=== PATIENT | female | born 1980 | race Caucasian/White ===

== ENCOUNTER 2017-11-21 16:56 | Emergency (ER) | payer MEDICARE, OTHER ==
[~2017-11-21] VITALS: Ht 170.2 cm; Wt 112.5 kg
[~2017-11-21 16:56] MED LIST: CELEXA10 MG PO; CELEXA20 MG; EPIPEN 2-P0.3 MG/0.3 IM; IBUPROFEN400 MG PO; LEVOTHYROXINE88 MCG PO; LISINOPRIL-HCT1 EAC2 PO; LISINOPRIL10 MG; METHOCARBAMOL750 MG PO; NORCO 5-325 TA1 EACH PO; OMEPRAZOLE20 MG PO; OXYCODON-ACETA1 EAC2 PO; OXYCODONE-ACET1 EAC3 PO; PROMETHAZINE-COD5 ML PO; TYLENOL EXTRA500 MG PO; TYLENOL325 MG PO; VALIUM5 MG PO; ZOFRAN ODT4 MG PO; ZOFRAN ODT4 MG SL
[2017-11-21] MEDS ORDERED: ANUSOL-HC25 MG PR (18:52)
[2017-11-21] MEDS ORDERED: ENULOSE10 GM/15 M PO (18:52)
== END 2017-11-21 19:00 | disposition home or self-care (01) ==
LOC: ED 16:56
DX: K64.8 Other hemorrhoids (principal); K59.00 Constipation, unspecified; I10 Essential (primary) hypertension; Z88.2 Allergy status to sulfonamides; Z88.5 Allergy status to narcotic agent; Z79.899 Other long term (current) drug therapy
CPT/HCPCS: 74177; 80053; 85025; 85610; 99284; J7030; Q9967

== ENCOUNTER 2018-01-24 13:56 | Emergency (ER) | payer MEDICARE, OTHER ==
[~2018-01-24] VITALS: Ht 170.2 cm; Wt 112.5 kg
[~2018-01-24 13:56] MED LIST changes: +ANUSOL-HC25 MG PR; +ENULOSE10 GM/15 M PO
[2018-01-24] MEDS ORDERED: METHYLPREDNISOLO4 M1 PO (16:07)
[2018-01-24] MEDS ORDERED: VALIUM5 MG PO (16:07)
[2018-01-24] MEDS ORDERED: NORCO 5-325 TA1 EACH PO (16:07)
== END 2018-01-24 16:23 | disposition home or self-care (01) ==
LOC: ED 13:56
DX: M48.061 Spinal stenosis, lumbar region without neurogenic claudication (principal); M62.830 Muscle spasm of back; I10 Essential (primary) hypertension; E03.9 Hypothyroidism, unspecified; Z88.2 Allergy status to sulfonamides; Z88.5 Allergy status to narcotic agent; Z79.899 Other long term (current) drug therapy
CPT/HCPCS: 72131; 81001; 96374; 96375; 99284; J1100; J1885; J2060

== ENCOUNTER 2018-10-18 20:02 | Emergency (ER) | payer MEDICARE, OTHER ==
[~2018-10-18] VITALS: Ht 170.2 cm; Wt 113.4 kg
[~2018-10-18 20:02] MED LIST changes: +MACROBID 100 M100 MG PO; +METHYLPREDNISOLO4 M1 PO
--- OUTSIDE RECORDS SUMMARY | 2018-10-18 20:04 | XMS ---
PreManage Notification: GUICHO NIETO Security Delinquent Account Clerk Events No recent Security Events currently on file CRITERIA MET - [facility] CARE PROVIDERS SON NEWSOME [facility] Current PHONE: Unknown Holland Newsome Current PHONE: Unknown Bhargav has no Care Guidelines for this patient. Lyndsey VISIT COUNT (12 MO.) 1 Bibiana Ochoa TOTAL 5 NOTE: Visits indicate total known visits. ED/UCC VISIT TRACKING (12 MO.) 10/18/2018 20:02 ELPIDIO Rodas [place] TYPE: Emergency COMPLAINT: - CONGESTION 07/28/2018 00:40 ELPIDIO Rodas [place] TYPE: Emergency COMPLAINT: - BLOOD PRESSURE PROBLEMS DIAGNOSES: - Essential (primary) hypertension - Allergy status to sulfonamides status - Allergy status to narcotic agent status - Acquired absence of both cervix and uterus - Allergy status to other drugs, medicaments and biological substances status - Headache - Other fdc (current) drug therapy - Migraine, unspecified, not intractable, without status migrainosus - Hypothyroidism, unspecified 01/24/2018 13:57 ELPIDIO Rodas [place] TYPE: Emergency COMPLAINT: - BACK PAIN/NO INJURY DIAGNOSES: - Allergy status to sulfonamides status - Muscle spasm of back - Essential (primary) hypertension - Hypothyroidism, unspecified - Low back pain - Allergy status to narcotic agent status - Other marine oil terminal superintendent (current) drug therapy - Spinal stenosis, lumbar region without neurogenic claudication - SPINAL STENOSIS, LUMBAR REGION WITHOUT NEUROGENIC 11/21/2017 16:56 ELPIDIO Rodas [place] TYPE: Emergency COMPLAINT: - LEFT LOWER ABD PAIN, RECTAL BLEEDING DIAGNOSES: - Constipation, unspecified - Allergy status to narcotic agent status - Other hemorrhoids - Left lower quadrant pain - Allergy status to sulfonamides status - Essential (primary) hypertension - Other marine oil terminal superintendent (current) drug therapy 10/29/2017 19:12 Bibiana TUCKER [place] TYPE: Emergency COMPLAINT: - Syncope / Pre-syncope INPATIENT VISIT TRACKING (12 MO.) No inpatient visits to display in this time frame [email or web address]
[2018-10-18] MEDS ORDERED: LISINOPRIL10 MG PO (20:18)
== END 2018-10-18 20:45 | disposition home or self-care (01) ==
LOC: ED 20:02
DX: J06.9 Acute upper respiratory infection, unspecified (principal); I10 Essential (primary) hypertension; Z90.710 Acquired absence of both cervix and uterus; Z88.2 Allergy status to sulfonamides; Z88.5 Allergy status to narcotic agent; Z88.8 Allergy status to other drugs, medicaments and biological substances; Z79.899 Other long term (current) drug therapy
CPT/HCPCS: 99283

== ENCOUNTER 2019-03-31 11:11 | Emergency (ER) | payer MEDICARE, OTHER ==
[~2019-03-31] VITALS: Ht 170.2 cm; Wt 113.4 kg
[~2019-03-31 11:11] MED LIST changes: +LISINOPRIL10 MG PO
--- OUTSIDE RECORDS SUMMARY | 2019-03-31 11:14 | XMS ---
PreManage Notification: GUICHO NIETO Security Manager Outreach Events No recent Security Events currently on file CRITERIA MET - [facility] - Has Care Guidelines - PDMP - [facility] - 2 Visits in 30 Days CARE PROVIDERS SON NEWSOME [facility] Current PHONE: Unknown Holland Newsome DO Treatment Current PHONE: Unknown Bhargav has no Care Guidelines for this patient. Care History Medical/Surgical 03/09/2019 [facility] - PATIENT HAS AN APT WITH DALIA ROCKWELL FOR FOLLOW UP TO ED VISIT ON 03/23/19. E.D. VISIT COUNT (12 MO.) 4 [facility] TOTAL 4 NOTE: Visits indicate total known visits. ED/UCC VISIT TRACKING (12 MO.) 03/31/2019 11:11 ELPIDIO Rodas [place] TYPE: Emergency COMPLAINT: - ABD PAIN,N/V 03/08/2019 00:37 ELPIDIO Rodas [place] TYPE: Emergency COMPLAINT: - VAGINAL BLEEDING DIAGNOSES: - Unspecified abnormal findings in urine - Allergy status to sulfonamides status - Allergy status to narcotic agent status - Essential (primary) hypertension 10/18/2018 20:02 ELPIDIO Rodas [place] TYPE: Emergency COMPLAINT: - CONGESTION DIAGNOSES: - Acute upper respiratory infection, unspecified - Nasal congestion - Allergy status to other drugs, medicaments and biological substances status - Allergy status to sulfonamides status - Essential (primary) hypertension - Other jail (current) drug therapy - Acquired absence of both cervix and uterus - Allergy status to narcotic agent status 07/28/2018 00:40 ELPIDIO Rodas [place] TYPE: Emergency COMPLAINT: - BLOOD PRESSURE PROBLEMS DIAGNOSES: - Essential (primary) hypertension - Allergy status to sulfonamides status - Allergy status to narcotic agent status - Acquired absence of both cervix and uterus - Allergy status to other drugs, medicaments and biological substances status - Headache - Other jail (current) drug therapy - Migraine, unspecified, not intractable, without status migrainosus - Hypothyroidism, unspecified INPATIENT VISIT TRACKING (12 MO.) No inpatient visits to display in this time frame [email or web address]
[2019-03-31] MEDS ORDERED: OXYCODONE HCL E20 MG PO (11:26)
[2019-03-31] MEDS ORDERED: ONDANSETRON ODT8 MG PO (14:05)
== END 2019-03-31 14:16 | disposition home or self-care (01) ==
LOC: ED 11:11
DX: K52.9 Noninfective gastroenteritis and colitis, unspecified (principal); I10 Essential (primary) hypertension; Z90.710 Acquired absence of both cervix and uterus; Z90.49 Acquired absence of other specified parts of digestive tract; Z88.2 Allergy status to sulfonamides; Z88.8 Allergy status to other drugs, medicaments and biological substances; Z88.5 Allergy status to narcotic agent; Z79.899 Other long term (current) drug therapy
CPT/HCPCS: 36415; 74177; 80053; 81001; 83690; 85025; 99284-25; J2405; J3010; J7030; Q9967

== ENCOUNTER 2019-06-04 20:58 | Emergency (ER) | payer MEDICARE, OTHER ==
[~2019-06-04] VITALS: Ht 170.2 cm; Wt 113.4 kg
[~2019-06-04 20:58] MED LIST changes: +ONDANSETRON ODT8 MG PO; +OXYCODONE HCL E20 MG PO
--- OUTSIDE RECORDS SUMMARY | 2019-06-04 21:00 | XMS ---
PreManage Notification: GUICHO NIETO Security Tutoring Assistant Events No recent Security Events currently on file CRITERIA MET - [facility] - Has Care Guidelines CARE PROVIDERS SON NEWSOME [facility] Current PHONE: Unknown Holland Newsome DO Treatment Current PHONE: Unknown Bhargav has no Care Guidelines for this patient. Care History Medical/Surgical 03/09/2019 [facility] - PATIENT HAS AN APT WITH DALIA ROCKWELL FOR FOLLOW UP TO ED VISIT ON 03/23/19. E.D. VISIT COUNT (12 MO.) [address] [place] [address]. TOTAL 5 NOTE: Visits indicate total known visits. ED/UCC VISIT TRACKING (12 MO.) 06/04/2019 20:58 ELPIDIO Rodas [place] TYPE: Emergency COMPLAINT: - POST OP PROBLEM 03/31/2019 11:11 ELPIDIO Rodas OR TYPE: Emergency COMPLAINT: - ABD PAIN,N/V DIAGNOSES: - Acquired absence of both cervix and uterus - Allergy status to oth drug/meds/biol subst status - Essential (primary) hypertension - Unspecified abdominal pain - Other fci (current) drug therapy - Allergy status to sulfonamides status - Allergy status to narcotic agent status - Acquired absence of other specified parts of digestive tract - Noninfective gastroenteritis and colitis, unspecified 03/08/2019 00:37 ELPIDIO Rodas [place] TYPE: Emergency COMPLAINT: - VAGINAL BLEEDING DIAGNOSES: - Unspecified abnormal findings in urine - Allergy status to sulfonamides status - Allergy status to narcotic agent status - Essential (primary) hypertension 10/18/2018 20:02 ELPIDIO Rodas [place] TYPE: Emergency COMPLAINT: - CONGESTION DIAGNOSES: - Acute upper respiratory infection, unspecified - Nasal congestion - Allergy status to oth drug/meds/biol subst status - Allergy status to sulfonamides status - Essential (primary) hypertension - Other fci (current) drug therapy - Acquired absence of both cervix and uterus - Allergy status to narcotic agent status 07/28/2018 00:40 ELPIDIO Rodas [place] TYPE: Emergency COMPLAINT: - BLOOD PRESSURE PROBLEMS DIAGNOSES: - Essential (primary) hypertension - Allergy status to sulfonamides status - Allergy status to narcotic agent status - Acquired absence of both cervix and uterus - Allergy status to oth drug/meds/biol subst status - Headache - Other fci (current) drug therapy - Migraine, unsp, not intractable, without status migrainosus - Hypothyroidism, unspecified INPATIENT VISIT TRACKING (12 MO.) No inpatient visits to display in this time frame [id number]
[2019-06-04] MEDS ORDERED: OXYCODONE HCL20 M1 PO (21:49)
[2019-06-04] MEDS ORDERED: OMEPRAZOLE20 MG PO (21:50)
[2019-06-04] MEDS ORDERED: KEFLEX500 MG PO (21:51)
== END 2019-06-04 23:28 | disposition home or self-care (01) ==
LOC: ED 20:58
DX: Z46.2 Encounter for fitting and adjustment of other devices related to nervous system and special senses (principal); I10 Essential (primary) hypertension; Z88.2 Allergy status to sulfonamides; Z88.8 Allergy status to other drugs, medicaments and biological substances; Z88.5 Allergy status to narcotic agent; Z91.048 Other nonmedicinal substance allergy status; Z79.899 Other long term (current) drug therapy
CPT/HCPCS: 99283

== ENCOUNTER 2020-02-01 09:17 | Emergency (ER) | payer MEDICARE, OTHER ==
[~2020-02-01] VITALS: Ht 167.6 cm; Wt 113.4 kg
[~2020-02-01 09:17] MED LIST changes: +KEFLEX500 MG PO; +OXYCODONE HCL20 M1 PO
--- OUTSIDE RECORDS SUMMARY | 2020-02-01 09:20 | XMS ---
PreManage Notification: GUICHO NIETO Security Environmental Marketing Representative Events No recent Security Events currently on file CRITERIA MET - [facility] - Has Care Guidelines CARE PROVIDERS SON NEWSOME [facility] Current PHONE: [phone] Bhargav has no Care Guidelines for this patient. Care History Medical/Surgical 03/09/2019 [facility] - PATIENT HAS AN APT WITH DALIA ROCKWELL FOR FOLLOW UP TO ED VISIT ON 03/23/19. Lyndsey VISIT COUNT (12 MO.) 4 [facility] TOTAL 4 NOTE: Visits indicate total known visits. ED/UCC VISIT TRACKING (12 MO.) 02/01/2020 09:17 ELPIDIO Rodas [place] TYPE: Emergency COMPLAINT: - POST OP PROBLEMS 01/24/2020 15:39 Jhonathan SHER OR TYPE: Urgent Care DIAGNOSES: - Anxiety disorder, unspecified - Major depressive disorder, single episode, unspecified - Medication Follow-up 11/20/2019 09:25 Jhonathan SHER [place] TYPE: Urgent Care DIAGNOSES: - Annual Exam - Type 2 diabetes mellitus without complications - Allergies 06/04/2019 20:58 ELPIDIO Rodas [place] TYPE: Emergency COMPLAINT: - POST OP PROBLEM DIAGNOSES: - Other nonmedicinal substance allergy status - Encounter for fitting and adjustment of other devices related - Fever, unspecified - Essential (primary) hypertension - Allergy status to sulfonamides status - Other exterminator helper termite (current) drug therapy - Allergy status to narcotic agent status - Allergy status to other drugs, medicaments and biological sub 03/31/2019 11:11 ELPIDIO Rodas [place] TYPE: Emergency COMPLAINT: - ABD PAIN,N/V DIAGNOSES: - Acquired absence of both cervix and uterus - Allergy status to other drugs, medicaments and biological sub - Essential (primary) hypertension - Unspecified abdominal pain - Other exterminator helper termite (current) drug therapy - Allergy status to [...] narcotic agent status - Essential (primary) hypertension INPATIENT VISIT TRACKING (12 MO.) 01/25/2020 05:44 [facility] Tushar NATHAN TYPE: Surgical Services DIAGNOSES: - Chronic pain syndrome - Other chronic pain - Cervicalgia - Low back pain [email or web address]
== END 2020-02-01 11:33 | disposition home or self-care (01) ==
LOC: ED 09:17
DX: R60.0 Localized edema (principal); I10 Essential (primary) hypertension; Z88.2 Allergy status to sulfonamides; Z88.8 Allergy status to other drugs, medicaments and biological substances; Z88.5 Allergy status to narcotic agent; Z79.899 Other long term (current) drug therapy; Z98.890 Other specified postprocedural states
CPT/HCPCS: 71046; 80053; 81001; 85025; 93971; 99284-25

== ENCOUNTER 2020-06-25 19:10 | Emergency (ER) | payer MEDICARE, OTHER ==
[~2020-06-25] VITALS: Ht 167.6 cm; Wt 108.4 kg
--- OUTSIDE RECORDS SUMMARY | 2020-06-25 19:12 | XMS ---
PreManage Notification: GUICHO NIETO Security Saturator Operator Events No recent Security Events currently on file CRITERIA MET - [facility] - Has Care Guidelines CARE PROVIDERS SON NEWSOME [facility] Current PHONE: [phone] Bhargav has no Care Guidelines for this patient. Care History Medical/Surgical 03/09/2019 [facility] - PATIENT HAS AN APT WITH DALIA ROCKWELL FOR FOLLOW UP TO ED VISIT ON 03/23/19. Lyndsey VISIT COUNT (12 MO.) 2 [facility] TOTAL 2 NOTE: Visits indicate total known visits. ED/UCC VISIT TRACKING (12 MO.) 06/25/2020 19:10 ELPIDIO Rodas [place] TYPE: Emergency COMPLAINT: - LT FOOT INJURY 05/06/2020 14:16 Jhonathan SHER OR TYPE: Urgent Care DIAGNOSES: - Other chronic pain - Radiculopathy, lumbar region - Chronic pain syndrome - Presence of other specified functional implants - Arthrodesis status - Anorexia - Lumbago with sciatica, right side - Obesity, unspecified - Lumbago with sciatica, left side - Other termite control technician (current) drug therapy - Other fatigue 02/01/2020 09:17 ELPIDIO Rodas [place] TYPE: Emergency COMPLAINT: - POST OP PROBLEMS DIAGNOSES: - Allergy status to narcotic agent - Other specified postprocedural states - Essential (primary) hypertension - Localized edema - Other termite control technician (current) drug therapy - Allergy status to other drugs, medicaments and biological substances - Allergy status to sulfonamides 01/24/2020 15:39 Jhonathan CARPIO TYPE: Urgent Care DIAGNOSES: - Anxiety disorder, unspecified - Major depressive disorder, single episode, unspecified - Medication Follow-up 11/20/2019 09:25 Jhonathan CARPIO TYPE: Urgent Care DIAGNOSES: - Annual Exam - Type 2 diabetes mellitus without complications - Allergies INPATIENT VISIT TRACKING (12 MO.) 01/25/2020 05:44 [facility] Tushar NATHAN TYPE: Surgical Services DIAGNOSES: - Chronic pain syndrome - Other chronic pain - Cervicalgia - Low back pain - Spinal stenosis, thoracic region [email or web address]
[2020-06-25] MEDS ORDERED: CRUTCH1 EACH (20:52)
== END 2020-06-25 20:57 | disposition home or self-care (01) ==
LOC: ED 19:10
DX: S93.402A Sprain of unspecified ligament of left ankle, initial encounter (principal); I10 Essential (primary) hypertension; Z88.2 Allergy status to sulfonamides; Z88.8 Allergy status to other drugs, medicaments and biological substances; Z88.5 Allergy status to narcotic agent; Z79.899 Other long term (current) drug therapy; W22.8XXA Striking against or struck by other objects, initial encounter
CPT/HCPCS: 73610; 99283-25

== ENCOUNTER 2021-01-30 23:22 | Emergency (ER) | payer MEDICARE, OTHER ==
[~2021-01-30] VITALS: Ht 167.6 cm; Wt 108.4 kg
[~2021-01-30 23:22] MED LIST changes: +CRUTCH1 EACH
== END 2021-01-31 03:56 | disposition home or self-care (01) ==
LOC: ED 23:22
DX: R10.9 Unspecified abdominal pain (principal); I10 Essential (primary) hypertension; Z88.2 Allergy status to sulfonamides; Z88.8 Allergy status to other drugs, medicaments and biological substances; Z88.5 Allergy status to narcotic agent; Z79.899 Other long term (current) drug therapy
CPT/HCPCS: 74177; 80053; 81001; 83690; 83735; 85025; 96375; 99284-25; J1170; J2405; Q9967

== ENCOUNTER 2021-08-01 22:03 | Emergency (ER) | payer MEDICARE, OTHER ==
[~2021-08-01] VITALS: Ht 167.6 cm; Wt 106.0 kg
--- OUTSIDE RECORDS SUMMARY | 2021-08-01 22:06 | XMS ---
PreManage Notification: GUICHO NIETO Security Specialty Sales Consultant Events No recent Security Events currently on file CRITERIA MET - PDM CARE PROVIDERS SON NEWSOME [facility] Current PHONE: Unknown Bhargav has no Care Guidelines for this patient. Care History Medical/Surgical 03/09/2019 [facility] - PATIENT HAS AN APT WITH DALIA ROCKWELL FOR FOLLOW UP TO ED VISIT ON 03/23/19. Lyndsey VISIT COUNT (12 MO.) 2 [facility] TOTAL 2 NOTE: Visits indicate total known visits. ED/UCC VISIT TRACKING (12 MO.) 08/01/2021 22:03 ELPIDIO Rodas [place] TYPE: Emergency COMPLAINT: - FLANK PAIN 01/30/2021 23:23 ELPIDIO Rodas [place] TYPE: Emergency COMPLAINT: - ABDOMINAL PAIN DIAGNOSES: - Unspecified abdominal pain - Allergy status to other drugs, medicaments and biological substances - Essential (primary) hypertension - Other group home (current) drug therapy - Allergy status to sulfonamides - Allergy status to narcotic agent INPATIENT VISIT TRACKING (12 MO.) No inpatient visits to display in this time frame [email or web address]
[2021-08-01] MEDS ORDERED: JARDIANCE25 MG PO (22:23)
[2021-08-01] MEDS ORDERED: METFORMIN HCL500 M1 PO (22:23)
== END 2021-08-02 02:07 | disposition home or self-care (01) ==
LOC: ED 22:03
DX: U07.1 COVID-19 (principal); Z23 Encounter for immunization; I10 Essential (primary) hypertension; E11.9 Type 2 diabetes mellitus without complications; Z88.2 Allergy status to sulfonamides; Z88.8 Allergy status to other drugs, medicaments and biological substances; Z88.5 Allergy status to narcotic agent; Z91.048 Other nonmedicinal substance allergy status; Z79.899 Other long term (current) drug therapy; Z79.84 Long term (current) use of oral hypoglycemic drugs
CPT/HCPCS: 71045; 81001; 85025; 99285-25; C9803; J7050; M0245; U0003

== ENCOUNTER 2023-07-09 13:22 | Emergency (ER) | payer MEDICARE, OTHER ==
[~2023-07-09] VITALS: Ht 167.6 cm; Wt 92.7 kg
[~2023-07-09 13:22] MED LIST changes: +JARDIANCE25 MG PO; +METFORMIN HCL500 M1 PO
[2023-07-09] MEDS ORDERED: OZEMPIC0.25 MG/02 SQ (14:15)
[2023-07-09 15:29] LABS: BASOPHILS 0.9 % (0-2); EOSINOPHILS 1.6 % (0-6); HEMATOCRIT 37.4 % (35.0-50.0); HEMOGLOBIN 12.6 g/dL (12.0-18.0); LYMPHOCYTES 30.3 % (24-44); MCHC 33.7 g/dl (30-36); MCV 92.1 fl (81-99); MONOCYTES 6.2 % (0-12); PLATELET COUNT 73 K/uL (140-440); RBC 4.05 M/ul (4.3-5.7); RDW 14.3 (10.5-15.0)
[2023-07-09 15:44] LABS: ALBUMIN 3.7 g/dL (3.4-5.0); ALBUMIN/GLOBULIN RATIO 1.12 (1.1-2.4); ANION GAP 8.3 (7-21); BILIRUBIN, TOTAL 0.8 ng/dL (0.2-1.0); BUN/CREATININE RATIO 8.69 (6.0-28.6); CALCIUM 8.5 mg/dL (8.5-10.1); CREATININE, SERUM 0.69 mg/dL (0.55-1.02); POTASSIUM 3.3 mmol/L (3.5-5.1)
[2023-07-09 17:02] VITALS: BP 154/75
== END 2023-07-09 17:04 | disposition home or self-care (01) ==
LOC: ED 13:22
PROVIDERS: Emergency Medicine
DX: K76.9 Liver disease, unspecified (principal); R79.89 Other specified abnormal findings of blood chemistry; I10 Essential (primary) hypertension; Z88.2 Allergy status to sulfonamides; Z88.5 Allergy status to narcotic agent; Z88.8 Allergy status to other drugs, medicaments and biological substances; Z79.899 Other long term (current) drug therapy; Z79.890 Hormone replacement therapy
CPT/HCPCS: 36415; 80053; 85025; 99283

== ENCOUNTER 2024-10-12 08:20 | Day surgery (SDC) | payer MEDICARE, OTHER ==
[2024-09-28 08:50] VITALS: BP 118/72
[~2024-10-12] VITALS: Ht 167.6 cm; Wt 95.5 kg
[~2024-10-12 08:20] MED LIST changes: +CEFAZOLIN SODIUM 2 GM/20 ML SYR IV SCH; +IBLOOD GLUCOSE TEST STRIP 1 EA TEST VI PRN; +LACTATED RINGER'S 1,000 ML IV SCH; -LEVOTHYROXINE88 MCG PO; +LEVOXYL50 MCG PO; +LIDOCAINE HCL 1% 5 ML SDV INJ ONE; +MIDAZOLAM HCL 5 MG/5 ML VIAL IV PRN; +OZEMPIC1 MG/0.71 SQ; +SUBOXONE 4 MG-1 EACH SL; +fentaNYL citrate 100 MCG/2 ML VIAL IV PRN
[2024-10-12 08:48] VITALS: BP 133/58
[2024-10-12] MEDS ORDERED: LIDOCAINE HCL 2% 5 ML SDV ONE (09:30)
[2024-10-12] MEDS ORDERED: propofoL 200 MG/20 ML VIAL ONE ×2 (09:30→10:51)
[2024-10-12 09:46] LABS: ALBUMIN 3.9 g/dL (3.4-5.0); ALBUMIN/GLOBULIN RATIO 1.05 (1.1-2.4); ANION GAP 11.2 (7-21); BILIRUBIN, TOTAL 1.9 mg/dL (0.2-1.0); BUN/CREATININE RATIO 7.69 (6.0-28.6); CALCIUM 8.8 mg/dL (8.5-10.1); CREATININE, SERUM 0.65 mg/dL (0.55-1.02); POTASSIUM 3.2 mmol/L (3.5-5.1); PROTEIN, TOTAL 7.6 g/dL (6.4-8.2)
--- NOTE | 2024-10-12 10:00 | NUR ---
VISITED DURING SPIRITUAL CARE ROUNDS. PT SUPPORTED BY IN ROOM. NO IMMEDIATE NEEDS. CASE RESOURCE MANAGER PROVIDED SUPPORTIVE PRESENCE, HOSPITALITY, PRAYER, FACILITATED INTERACTION WITH THERAPY ANIMAL. PT EXPRESSED GRATITUDE, REDUCED ANXIETY.
--- NOTE | 2024-10-12 11:11 | NUR ---
10/12/24 1111 Sheets,Tiffany 1106 PT ARRIVED TO PACU ON 2L VIA NC, PT ASLEEP AND RESP EVEN AND UNLABORED.
[2024-10-12 11:55] VITALS: BP 124/63
--- NOTE | 2024-10-13 07:04 | OR ---
[facility] [address] [place], [place] [address] Signed DATE OF OPERATION: 10/12/2024 SURGEON: Marita Ambrocio MD PREOPERATIVE DIAGNOSES: 1. Chronic diabetic gastroparesis. 2. Melena. 3. Intermittent rectal bleeding associated with bowel movements. 4. Chronic constipation. POSTOPERATIVE DIAGNOSES: 1. Mild punctate hemorrhagic gastritis. 2. Moderate distal esophageal varices. 3. 6 mm polyp at 22 cm in sigmoid colon. 4. Minimal internal hemorrhoids. 5. Minimal internal anal skin tags. PROCEDURES: 1. Esophagogastroduodenoscopy with CLOtest and biopsies of the antrum. 2. Colonoscopy with snare polypectomy. ESTIMATED BLOOD LOSS: None. INDICATIONS: Ute is a 44-year-old female, I have known for quite some time. She has been through both upper and lower endoscopies. Unfortunately, we could not access some old records on our gravity prospecting observer helper when she came to the office. She has a long history of diabetes and chronic gastroparesis. They have added Ozempic and its help her to lose weight. However, she had some trouble with melena. She told me it is now resolved. Her primary care provider wanted her to come and have both upper and lower endoscopy. She reminded me that she can go a couple of weeks without having a bowel movement. She had neck and back surgeries as well. She and citalopram. She can often see blood in her stool as well. She does not seem to have any pain. When she came earlier, we had her do a double bowel prep and for some reason it did not work whatsoever. She is rescheduled and came back today. She took the bowel prep all day and finished up a whole gallon of polyethylene glycol along with eight Dulcolax tablets. She said that worked out fairly well. She understands upper and lower endoscopy quite well. There is risk including, but not limited to gas bloating, crampy abdominal pain, bleeding, perforation requiring surgery, and missed diagnosis. She understands the need for Electronically Signed By: MARITA AMBROCIO MD 10/13/24 0704 PATIENT NAME: UTE NIETO OPERATIVE REPORT DATE OF : 76 REPORT #: [id number] PHYSICIAN: MARITA AMBROCIO MD PCP: LESLI DENTON PAC REPORT IS CONFIDENTIAL AND NOT TO BE RELEASED WITHOUT AUTHORIZATION [address] [address] Signed monitored anesthesia care given her history. She also understands an adult person will take her home afterwards, usually that is her . She had expressed understanding and wished to proceed. DESCRIPTION OF PROCEDURE: Ute was taken into our endoscopy suite and placed in the supine semi-recumbent position. The posterior oropharynx was anesthetized with lidocaine spray. A bite block was utilized for the case. The adult gastroscope was introduced and advanced under direct visualization of camera. We went by her distal esophageal varices and out into the duodenum. The duodenum and pyloric channel were not particularly concerning. She had a little bit of punctate hemorrhagic gastritis. No ulcerations. We took a biopsy of the antrum for CLOtest as well as pathologic review. We could see there was some back bleeding and little congestion. Upon retroflexion of scope, there was no obvious hiatal hernia. The scope was withdrawn through the area of the GE junction, which was compliant without stricture. She had a little irritation around the Z-line at around 33 cm. We could also see moderate-sized distal esophageal varices. They extend up to about the middle esophagus. The proximal esophagus was unremarkable. After this, the gas was suctioned out, the gastroscope removed. Ute tolerated the procedure quite well. Ute was rotated into the left lateral decubitus position. She was maintained on IV propofol per our nurse dough maker. A digital rectal exam was performed, this was unremarkable. No external hemorrhoids. Good sphincter tone. No masses. The adult colonoscope was introduced and advanced under direct visualization of the camera. It took extra propofol and moving Ute into the supine position along with abdominal compression in order to get the scope directly into the cecum itself. Overall, her prep was good. There were some areas of liquid particulate stool matter. I think a little bit more polyethylene glycol would have helped or maybe even a bottle of Mag citrate rather than Dulcolax tablets. The scope was then slowly withdrawn. We took several pictures throughout for photodocumentation. We found polyp back at 22 cm. We divided it with the snare and suctioned through the scope. Once in the rectum, the scope was retroflexed and she does have tiny internal hemorrhoid columns with some with several small internal anal skin tags. After this, the gas was suctioned out, colonoscope removed. Ute tolerated the lower endoscopy quite well. RECOMMENDATIONS: I will see Ute back in my office in 7 to 14 days to review her results. Having seen the distal esophageal varices, we reviewed her laboratory work. We found her hemoglobin was 12.7 with a mean cell volume of 90 and platelet count of 74,000. Her creatinine was 0.65 with a total bilirubin 1.9, AST 33, ALT 22, alkaline phosphatase is 101, albumin 3.9. From what I know this is new for Ute, she is going to need that evaluated more thoroughly with ultrasound of her upper abdomen including the liver and the spleen. She Electronically Signed By: MARITA AMBROCIO MD 10/13/24 0704 PATIENT NAME: UTE NIETO OPERATIVE REPORT DATE OF : 76 REPORT #: [id number] PHYSICIAN: MARITA AMBROCIO MD PCP: LESLI DENTON PAC REPORT IS CONFIDENTIAL AND NOT TO BE RELEASED WITHOUT AUTHORIZATION [facility] [address] [facility] [place], [place] [address] Signed is going to need blood work and she probably should see one of the stock speculator in that regard. I think the esophageal varices and/or the gastritis more than likely was the source of her melena. MD EDMAR Otero/CARMEN /[id number] cc: Patient Chart MD Lesli Otero PA-C Copies: MARITA AMBROCIO MD ~ Electronically Signed By: MARITA AMBROCIO MD 10/13/24 0704 PATIENT NAME: UTE NIETO OPERATIVE REPORT DATE OF : 76 REPORT #: [id number] PHYSICIAN: MARITA AMBROCIO MD PCP: LESLI DENTON PAC REPORT IS CONFIDENTIAL AND NOT TO BE RELEASED WITHOUT AUTHORIZATION
--- NOTE | 2024-10-16 11:08 | PATH ---
[facility] [address] [place], [place] [address] Signed SPECIMEN(S): A ANTRUM BIOPSY SPECIMEN(S): B SIGMOID POLYP, 22 CM SPECIMEN SOURCE: A. ANTRUM BIOPSY B. SIGMOID POLYP, 22 CM CLINICAL HISTORY: Gastroparesis, melena, gastritis FINAL PATHOLOGIC DIAGNOSIS: A. Stomach, antrum, biopsy: - Gastric antral mucosa with no significant pathologic changes - Negative for Helicobacter pylori with HE stains B. Colon, sigmoid at 22 cm, polypectomy: - Colonic mucosa with no significant pathologic changes BRP MICROSCOPIC EXAMINATION: Histologic sections of all submitted blocks are examined by light microscopy. These findings, together with the gross examination, support the pathologic diagnosis. GROSS DESCRIPTION: A. The specimen, labeled and designated "Farantoni, antrum biopsy," is received in formalin and consists of one leal soft tissue fragment, 0.2 cm. Entirely submitted in (A1). B. The specimen, labeled and designated "Farrow, sigmoid polyp, 22 cm," is received in formalin and consists of one leal soft tissue fragment, 0.4 cm. Entirely submitted in (B1). VB (under the direct supervision of a pathologist) The Gross Description was prepared using a voice recognition system. The report was reviewed for accuracy; however, sound-alike word errors, addition and/or deletions may occur. If there is any question about this report, please contact Client Services. ADDITIONAL NOTES: Immunohistochemical and/or in situ hybridization studies if performed in this case included appropriate positive controls that reacted as expected. This test was developed and its performance characteristics determined by [facility]. It has not been cleared or PATIENT NAME: GUICHO NIETO PATHOLOGY DATE OF : 76 REPORT #: [id number] PHYSICIAN: RYAN GONZALEZ PCP: LESLI DENTON PAC REPORT IS CONFIDENTIAL AND NOT TO BE RELEASED WITHOUT AUTHORIZATION [facility] [address] [place], [place] [address], [place] [address] Signed approved by the U.S. Food and Drug Administration. The FDA has determined that such clearance or approval is not necessary. This test is used for clinical purposes. It should not be regarded as investigational or for research. [facility] is certified under the Clinical Laboratory Improvement Amendments of 1988 (CLIA) as qualified to perform high complexity clinical laboratory testing. PERFORMING LABORATORY: Technical component was performed by [facility], [address] [place] [address] (CLIA# [id number]). Professional interpretation was performed by [facility] - [facility], [address] [place] [address] (CLIA#: [id number]). Diagnostician: Shaun Prescott MD Pathologist Electronically Signed 10/16/2024 Copies: ~ PATIENT NAME: GUICHO NIETO PATHOLOGY DATE OF : 76 REPORT #: [id number] PHYSICIAN: RYAN GONZALEZ PCP: LESLI DENTON PAC REPORT IS CONFIDENTIAL AND NOT TO BE RELEASED WITHOUT AUTHORIZATION
== END 2024-10-12 12:16 | disposition home or self-care (01) ==
LOC: DS 08:20
PROVIDERS: ATTEND Colon & Rectal Surgery
PROC: 0DB68ZX Excision of Stomach, Via Natural or Artificial Opening Endoscopic, Diagnostic (ICD-10-PCS; principal; 2024-10-12 09:45)
PROC: 0DBN8ZZ Excision of Sigmoid Colon, Via Natural or Artificial Opening Endoscopic (ICD-10-PCS; 2024-10-12 09:45)
DX: K29.71 Gastritis, unspecified, with bleeding (principal); I85.00 Esophageal varices without bleeding; K63.5 Polyp of colon; K64.8 Other hemorrhoids; E11.43 Type 2 diabetes mellitus with diabetic autonomic (poly)neuropathy; K31.84 Gastroparesis; K59.09 Other constipation; E03.9 Hypothyroidism, unspecified; K21.9 Gastro-esophageal reflux disease without esophagitis; G89.29 Other chronic pain; I10 Essential (primary) hypertension; G43.909 Migraine, unspecified, not intractable, without status migrainosus; Z88.2 Allergy status to sulfonamides; Z88.5 Allergy status to narcotic agent; Z88.8 Allergy status to other drugs, medicaments and biological substances; Z79.899 Other long term (current) drug therapy
CPT/HCPCS: 00813; 36415; 80053; 87077; 88305; J0690; J2003; J2704; J7121

== ENCOUNTER 2025-01-02 20:30 | Emergency (ER) | payer MEDICARE, OTHER ==
[~2025-01-02] VITALS: Ht 167.6 cm; Wt 95.5 kg
[~2025-01-02 20:30] MED LIST changes: -CEFAZOLIN SODIUM 2 GM/20 ML SYR IV SCH; -IBLOOD GLUCOSE TEST STRIP 1 EA TEST VI PRN; -LACTATED RINGER'S 1,000 ML IV SCH; -LIDOCAINE HCL 1% 5 ML SDV INJ ONE; -MIDAZOLAM HCL 5 MG/5 ML VIAL IV PRN; -fentaNYL citrate 100 MCG/2 ML VIAL IV PRN
[2025-01-02] MEDS ORDERED: BUPRENORPHIN-N1 EACH SL (20:48)
[2025-01-02] MEDS ORDERED: ondansetron HCL 4 MG/2 ML VIAL IV PRN (21:00)
[2025-01-02 21:02] LABS: BASOPHILS 1.1 % (0.1-1.2); EOSINOPHILS 0.8 % (0.7-5.8); HEMATOCRIT 35.8 % (34.1-44.9); LYMPHOCYTES 25.1 % (19.3-51.7); MCH 30.3 PG (25.6-32.2); MCHC 33.5 g/dL (32.2-35.5); MCV 90.4 fL (79.4-94.8); MONOCYTES 9.5 % (4.7-12.5); NEUTROPHILS 63.1 % (34.0-71.1); PLATELET COUNT 77 K/uL (182-369); RBC 3.96 M/uL (3.93-5.22)
[2025-01-02 21:15] LABS: ALBUMIN 3.6 g/dL (3.4-5.0); ANION GAP 9.4 (7-21); BILIRUBIN, TOTAL 0.8 mg/dL (0.2-1.0); BUN/CREATININE RATIO 10.66 (6.0-28.6); CALCIUM 8.5 mg/dL (8.5-10.1); CREATININE, SERUM 0.75 mg/dL (0.55-1.02); POTASSIUM 3.4 mmol/L (3.5-5.1); PROTEIN, TOTAL 7.2 g/dL (6.4-8.2)
[2025-01-02] MEDS ORDERED: LACTATED RINGER'S 1,000 ML IV ONE (21:30)
[2025-01-02] MEDS ORDERED: FAMOTIDINE 20 MG/ 2 ML VIAL IV ONE (21:30)
[2025-01-02 21:40] LABS: BILIRUBIN, URINE NEGATIVE (negative); BLOOD/HGB, URINE TRACE-L (Negative); KETONE, URINE NEGATIVE (Negative); LEUK ESTERASE, URINE MODERATE (negative); NITRITE, URINE NEGATIVE (negative)
[2025-01-02 21:46] LABS: CRYSTALS, URINE NONE SEEN (0-1+); EPITHELIAL CELLS, URINE SQUAMOUS 3+ /lpf (0-1+); WHITE BLOOD CELLS, URINE >50 /HPF (0-5)
[2025-01-02 21:47] LABS: BACTERIA, URINE RARE /hpf (negative); CASTS, URINE NONE SEEN \\lpf; COLLECTION TYPE, URINE CLEAN CATCH; REFLEX CULTURE, URINE No (No)
[2025-01-02] MEDS ORDERED: CEPHALEXIN MONOHYDRATE 500 MG HOME.PACK PO ONE (22:15)
[2025-01-02] MEDS ORDERED: CEPHALEXIN MONOHYDRATE 500 MG CAP PO ONE (22:15)
[2025-01-02] MEDS ORDERED: FLUCONAZOLE150 MG PO (22:16)
[2025-01-02] MEDS ORDERED: CEPHALEXIN500 M1 PO (22:16)
[2025-01-02 22:32] VITALS: BP 119/61
== END 2025-01-02 22:30 | disposition home or self-care (01) ==
LOC: ED 20:30
PROVIDERS: Internal Medicine
DX: N39.0 Urinary tract infection, site not specified (principal); I10 Essential (primary) hypertension; Z88.2 Allergy status to sulfonamides; Z79.890 Hormone replacement therapy; Z88.5 Allergy status to narcotic agent; Z88.8 Allergy status to other drugs, medicaments and biological substances; Z79.899 Other long term (current) drug therapy
CPT/HCPCS: 36415; 80053; 81001; 84703; 85025; 85379; 87088; 96374; 96375; 99283-25; A9270; J2405; J7121

== ENCOUNTER 2025-04-05 19:56 | Emergency (ER) | payer MEDICARE, OTHER ==
[~2025-04-05] VITALS: Ht 167.6 cm; Wt 93.2 kg
[~2025-04-05 19:56] MED LIST changes: +BUPRENORPHIN-N1 EACH SL; +CEPHALEXIN500 M1 PO; +FLUCONAZOLE150 MG PO
[2025-04-05] MEDS ORDERED: HYDROmorphone HCL 1 MG/ML SYR IV PRN (20:30)
[2025-04-05] MEDS ORDERED: LACTATED RINGER'S 1,000 ML IV ONE (20:30)
[2025-04-05] MEDS ORDERED: MORPHINE SULFATE 4 MG/ML VIAL IV ONE (20:30)
[2025-04-05 20:41] LABS: BASOPHILS 0.5 % (0.1-1.2); EOSINOPHILS 0.7 % (0.7-5.8); LYMPHOCYTES 18.8 % (19.3-51.7); MCH 30.6 PG (25.6-32.2); MCHC 35.3 g/dL (32.2-35.5); MCV 86.6 fL (79.4-94.8); MONOCYTES 8.7 % (4.7-12.5); NEUTROPHILS 71.1 % (34.0-71.1); RBC 4.09 M/uL (3.93-5.22)
[2025-04-05 20:58] LABS: BLOOD/HGB, URINE NEGATIVE (Negative); KETONE, URINE NEGATIVE (Negative); LEUK ESTERASE, URINE NEGATIVE (negative); NITRITE, URINE NEGATIVE (negative)
[2025-04-05 21:00] LABS: ALT (SGPT) 15.0 U/L (14-59); AST (SGOT) 31.0 U/L (15-37); GLOMERULAR FILTRATION RATE,EST 113.0 mL/min (>60); PROTEIN, TOTAL 7.2 g/dL (6.4-8.2); UREA NITROGEN 5.0 mg/dL (7-18)
[2025-04-06] MEDS ORDERED: ONDANSETRON ODT8 MG PO (00:31)
[2025-04-06] MEDS ORDERED: HYDROCODON-ACE1 EA10 PO (00:31)
[2025-04-06] MEDS ORDERED: AMOX TR-K CLV1 EAC1 PO (00:32)
[2025-04-06] MEDS ORDERED: ONDANSETRON 4 MG HOME.PACK SL ONE (00:45)
[2025-04-06] MEDS ORDERED: AMOXICILLIN/CLAVULANATE K 875 MG HOME.PACK PO ONE (00:45)
[2025-04-06] MEDS ORDERED: HYDROCODONE BIT/ACETAMINOPHEN 5/325 MG 1 TAB HOME.PACK PO ONE (00:45)
[2025-04-06] MEDS ORDERED: methylPREDNISolone 4 MG HOME.PACK PO ONE (00:45)
[2025-04-06 01:38] VITALS: BP 117/48
== END 2025-04-06 01:48 | disposition home or self-care (01) ==
LOC: ED 19:56
PROVIDERS: Family Medicine
DX: K52.9 Noninfective gastroenteritis and colitis, unspecified (principal); E87.6 Hypokalemia; I10 Essential (primary) hypertension; Z88.2 Allergy status to sulfonamides; Z88.5 Allergy status to narcotic agent; Z88.8 Allergy status to other drugs, medicaments and biological substances; Z91.048 Other nonmedicinal substance allergy status; Z79.890 Hormone replacement therapy; Z79.85 Long-term (current) use of injectable non-insulin antidiabetic drugs; Z79.899 Other long term (current) drug therapy
CPT/HCPCS: 36415; 74177; 80053; 81003; 83690; 83735; 85025; 96361; 96374; 96375; 96376; 99284-25; A9270; J1171; J2405; J7121; Q9967

== ENCOUNTER 2025-06-08 12:01 | Emergency (ER) | payer MEDICARE, OTHER ==
[~2025-06-08] VITALS: Ht 167.6 cm; Wt 87.0 kg
--- OUTSIDE RECORDS SUMMARY | ~2025-06-08 | XMS | Continuity of Care Document ---
Demographics + + + | Address | [facility] [address] | | | [place] [address] | + + + | Preferred Language | Unknown | + + + | Marital Status | | + + + | Islam Affiliation | Unknown | + + + | Race | White | + + + | Ethnic Group | Not or | + + + Author + + + | Author | [facility] | + + + | Organization | [facility] | + + + | Address | [address] | | | [place] [address] | + + + | Phone | | + + + Care Team Providers + + + + | Care Research Nutritionist Name | Role | Phone | + + + + Unavailable | Unavailable | + + + + Unavailable | Unavailable | + + + + Allergies No information. Encounters No information. Functional Status No information. Immunizations No information. Medications + + + + | date | description | facility | + + + + | (no date) | DIAZEPAM | [facility] | | | | [facility] | + + + + | (no date) | OXYCODONE | [facility] | | | HCL/ACETAMINOPHEN | [facility] | + + + + | (no date) | OXYCODONE | [facility] | | | HCL/ACETAMINOPHEN | [facility] | + + + + | (no date) | OXYCODONE HCL | [facility] | | | | [facility] | + + + + | (no date) | IBUPROFEN | [facility] | | | | [facility] | + + + + | (no date) | | [facility] | | | LISINOPRIL/HYDROCHLOROTHIAZ | [facility] | | | [facility]AN MANUEL | | + + + + | (no date) | METHOCARBAMOL | [facility] | | | | [facility] | + + + + | (no date) | OMEPRAZOLE | [facility] | | | | [facility] | + + + + | (no date) | ACETAMINOPHEN | [facility] | | | | [facility] | + + + + | (no date) | CEPHALEXIN | [facility] | | | | [facility] | + + + + | (no date) | Semaglutide | [facility] | | | | [facility] | + + + + | (no date) | CITALOPRAM HYDROBROMIDE | [facility] | | | | [facility] | + + + + | 2025-04-06 00:00 | ONDANSETRON | [facility] | | | | [facility] | + + + + | (no date) | ACETAMINOPHEN | [facility] | | | | [facility] | + + + + | (no date) | LISINOPRIL | [facility] | | | | [facility] | + + + + | (no date) | BUPRENORPHINE HCL/NALOXONE | [facility] | | | HCL | [facility] | + + + + | 2025-04-06 00:00 | AMOXICILLIN/POTASSIUM CLAV | [facility] | | | | [facility] | + + + + | (no date) | EPINEPHRINE | [facility] | | | | [facility] | + + + + | 2025-04-06 00:00 | HYDROCODONE | [facility] | | | BIT/ACETAMINOPHEN | [facility] | + + + + | (no date) | HYDROCODONE | [facility] | | | BIT/ACETAMINOPHEN | [facility] | + + + + | (no date) | LEVOTHYROXINE SODIUM | [facility] | | | | [facility] | + + + + Problems + + + + | date | description | facility | + + + + | 2025-04-06 00:00 | Colitis | [facility] | | | | [facility] | + + + + Procedures No information. Results/Labs +--------+--------+ +---------+--------+---------+ | test | date | facility | value | unit | notes | +--------+--------+ +---------+--------+---------+ + + | Result panel 1 | + + + + + +--------+ + + | WBC # Bld | 2025-04-05 | | 4.16 | (missing) | (missing) | | Auto | 20:35:07 | [facility] | | | | + + + +--------+ + + + + | Result panel 2 | + + + + + +--------+ + + | Lymphocytes | 2025-04-05 | | 18.8 | (missing) | (missing) | | NFr Bld | 20:35:07 | [facility] | | | | | Auto [facility] | | | | + + + +--------+ + + + + | Result panel 3 | + + + + + +-------+ + + | Monocytes | 2025-04-05 | | 8.7 | (missing) | (missing) | | NFr Bld Auto | 20:35:07 | [facility] | | | | + + + +-------+ + + + + | Result panel 4 | + + + + + +-------+ + + | Eosinophil | 2025-04-05 | | 0.7 | (missing) | (missing) | | NFr Bld Auto | 20:35:07 | [facility] | | | | + + + +-------+ + + + + | Result panel 5 | + + + + + +-------+ + + | Basophils | 2025-04-05 | | 0.5 | (missing) | (missing) | | NFr Bld Auto | 20:35:07 | [facility] | | | | + + + +-------+ + + + + | Result panel 6 | + + + + + +--------+ + + | RBC # Bld | 2025-04-05 | | 4.09 | (missing) | (missing) | | Auto | 20:35:07 | [facility] | | | | + + + +--------+ + + + + | Result panel 7 | + + + + + +-------+---------+ + | Glucose | 2025-04-05 | | 127 | mg/dL | (missing) | | SerPl-mCnc | 20:35:07 | [facility] | | | | + + + +-------+---------+ + + + | Result panel 8 | + + + + + +-----+---------+ + | BUN | 2025-04-05 | | 5 | mg/dL | (missing) | | Yeimy-Alvaro | 20:35:07 | [facility] | | | | + + + +-----+---------+ + + + | Result panel 9 | + + + + + +--------+---------+ + | Creat | 2025-04-05 | | 0.58 | mg/dL | (missing) | | SerPl-mCnc | 20:35:07 | [facility] | | | | + + + +--------+---------+ + + + | Result panel 10 | + + + + + +-------+ + + | eGFRcr | 2025-04-05 | | 113 | (missing) | (missing) | | SerPlBld | 20:35:07 | [facility] | | | | | CKD-EPI 2020 | [facility] | | | | + + + +-------+ + + + + | Result panel 11 | + + + + + +--------+ + + | Hgb | 2025-04-05 | | 12.5 | (missing) | (missing) | | Bld-mCnc | 20:35:07 | [facility] | | | | + + + +--------+ + + + + | Result panel 12 | + + + + + +--------+ + + | BUN/Creat | 2025-04-05 | | 8.62 | (missing) | (missing) | | SerPl | 20:35:07 | [facility] | | | | + + + +--------+ + + + + | Result panel 13 | + + + + + +-------+ + + | Sodium | 2025-04-05 | | 136 | (missing) | (missing) | | SerPl-sCnc | 20:35:07 | [facility] | | | | + + + +-------+ + + + + | Result panel 14 | + + + + + +-------+ + + | Potassium | 2025-04-05 | | 3.2 | (missing) | (missing) | | SerPl-sCnc | 20:35:07 | [facility] | | | | + + + +-------+ + + + + | Result panel 15 | + + + + + +-------+ + + | Chloride | 2025-04-05 | | 101 | (missing) | (missing) | | SerPl-sCnc | 20:35:07 | [facility] | | | | + + + +-------+ + + + + | Result panel 16 | + + + + + +------+ + + | CO2 | 2025-04-05 | | 26 | (missing) | (missing) | | SerPl-sCnc | 20:35:07 | [facility] | | | | + + + +------+ + + + + | Result panel 17 | + + + + + +--------+ + + | Anion Gap | 2025-04-05 | | 12.2 | (missing) | (missing) | | SerPl | 20:35:07 | [facility] | | | | | Calculated.4 | [facility] Ions-s[facility]nc | | Tr | | | | | | | Hospital | | | | + + + +--------+ + + + + | Result panel 18 | + + + + + +-------+---------+ + | Calcium | 2025-04-05 | | 9.2 | mg/dL | (missing) | | SerPl-mCnc | 20:35:07 | [facility] | | | | + + + +-------+---------+ + + + | Result panel 19 | + + + + + +-------+---------+ + | Magnesium | 2025-04-05 | | 1.9 | mg/dL | (missing) | | SerPl-mCnc | 20:35:07 | [facility] | | | | + + + +-------+---------+ + + + | Result panel 20 | + + + + + +-------+ + + | Prot | 2025-04-05 | | 7.2 | (missing) | (missing) | | SerPl-Alvaro | 20:35:07 | [facility] | | | | + + + +-------+ + + + + | Result panel 21 | + + + + + +-------+ + + | Albumin | 2025-04-05 | | 3.7 | (missing) | (missing) | | Yeim[facility] | 20:35:07 | [facility] | | | | + + + +-------+ + + + + | Result panel 22 | + + + + + +--------+ + + | Hct VFr.DF | 2025-04-05 | | 35.4 | (missing) | (missing) | | Bld Auto | 20:35:07 | [facility] | | | | | | | - | | | | | | | Tr | | | | | | | Hospital | | | | + + + +--------+ + + + + | Result panel 23 | + + + + + +-------+ + + | Globulin | 2025-04-05 | | 3.5 | (missing) | (missing) | | Ser-mCnc | 20:35:07 | [facility] | | | | + + + +-------+ + + + + | Result panel 24 | + + + + + +--------+ + + | | 2025-04-05 | | 1.06 | (missing) | (missing) | | Albumin/Glob | 20:35:07 | [facility] | | | | | SerPl [facility] | | | | + + + +--------+ + + + + | Result panel 25 | + + + + + +-------+---------+ + | Bilirub | 2025-04-05 | | 1.4 | mg/dL | (missing) | | SerPl-mCnc | 20:35:07 | [facility] | | | | + + + +-------+---------+ + + + | Result panel 26 | + + + + + +------+ + + | AST | 2025-04-05 | | 31 | (missing) | (missing) | | [facility] | 20:35:07 | [facility] | | | | + + + +------+ + + + + | Result panel 27 | + + + + + +------+ + + | ALT | 2025-04-05 | | 15 | (missing) | (missing) | | SerPl-cCnc | 20:35:07 | [facility] | | | | + + + +------+ + + + + | Result panel 28 | + + + + + +-------+ + + | ALP | 2025-04-05 | | 106 | (missing) | (missing) | | SerPl-cCnc | 20:35:07 | [facility] | | | | + + + +-------+ + + + + | Result panel 29 | + + + + + +------+ + + | Lipase | 2025-04-05 | | 34 | (missing) | (missing) | | SerPl-cCnc | 20:35:07 | [facility] | | | | + + + +------+ + + + + | Result panel 30 | + + + + + +--------+ + + | RBC Auto | 2025-04-05 | | 86.6 | (missing) | (missing) | | | 20:35:07 | [facility] | | | | + + + +--------+ + + + + | Result panel 31 | + + + + + +--------+ + + | MCH RBC Qn | 2025-04-05 | | 30.6 | (missing) | (missing) | | Auto | 20:35:07 | [facility] | | | | + + + +--------+ + + + + | Result panel 32 | + + + + + +--------+ + + | MCHC RBC | 2025-04-05 | | 35.3 | (missing) | (missing) | | Auto-EntMCnc | 20:35:07 | [facility] | | | | + + + +--------+ + + + + | Result panel 33 | + + + + + +------+ + + | Platelet # | 2025-04-05 | | 81 | (missing) | (missing) | | Bld Auto | 20:35:07 | [facility] | | | | + + + +------+ + + + + | Result panel 34 | + + + + + +--------+ + + | Neutrophils | 2025-04-05 | | 71.1 | (missing) | (missing) | | NFr Bld | 20:35:07 | [facility] | | | | | Auto [facility] | | | | + + + +--------+ + + + + | Result panel 35 | + + + + + + + + + | Color Ur | 2025-04-05 | | YELLOW | (missing) | (missing) | | Auto | 20:52:07 | [facility] | | | | + + + + + + + + + | Result panel 36 | + + + + + +---------+ + + | Character | 2025-04-05 | | CLEAR | (missing) | (missing) | | Ur | 20:52:07 | [facility] | | | | + + + +---------+ + + + + | Result panel 37 | + + + + + + + + + | Glucose Ur | 2025-04-05 | | NEGATIVE | (missing) | (missing) | | Ql Strip | 20:52:07 | [facility] | | | | + + + + + + + + + | Result panel 38 | + + + + + + + + + | Surendra Santana | 2025-04-05 | | NEGATIVE | (missing) | (missing) | | Ql Strip | 20:52:07 | [facility] | | | | + + + + + + + + + | Result panel 39 | + + + + + + + + + | Gabriella Ur | 2025-04-05 | | NEGATIVE | (missing) | (missing) | | Ql Strip | 20:52:07 | [facility] | [facility] | | | | + + + + + + + + + | Result panel 40 | + + + + + +---------+ + + | Sp Gr Ur | 2025-04-05 | | 1.010 | (missing) | (missing) | | Strip | 20:52:07 | [facility] | | Hospital | | | | + + + +---------+ + + + + | Result panel 41 | + + + + + + + + + | Hgb Ur Ql | 2025-04-05 | | NEGATIVE | (missing) | (missing) | | Strip | 20:52:07 | [facility] | [facility] | | | | + + + + + + + + + | Result panel 42 | + + + + + +-------+ + + | pH Ur Strip | 2025-04-05 | | 7.0 | (missing) | (missing) | | | 20:52:07 | [facility] | | | | | | Hospital | | | | + + + +-------+ + + + + | Result panel 43 | + + + + + + + + + | Prot Ur | 2025-04-05 | | NEGATIVE | (missing) | (missing) | | Strip-mCnc | 20:52:07 | [facility] | | Hospital | | | | + + + + + + + + + | Result panel 44 | + + + + + + + + + | | 2025-04-05 | | NORMAL | (missing) | (missing) | | Urobilinogen | 20:52:07 | [facility] | | | | | Ur | [facility] | [facility] | Strip-mCnc | | Tr | | | | | | | Hospital | | | | + + + + + + + + + | Result panel 45 | + + + + + + + + + | Nitrite Ur | 2025-04-05 | | NEGATIVE | (missing) | (missing) | | Ql Strip | 20:52:07 | [facility] | | | [facility] | | [facility] | | | | + + + + + + + + + | Result panel 46 | + + + + + + + + + | Leukocyte | 2025-04-05 | | NEGATIVE | (missing) | (missing) | | esterase Ur | 20:52:07 | [facility] | | | | | Ql Strip [facility] | | [facility] | [facility] | | | | + + + + + + + Social History +--------+ + + | date | description | facility | +--------+ + + Vital Signs + + + +---------+ | date | measurement | value | units | + + + +---------+ | 2025-04-05 00:00 | BMI | 33.2 | kg/m2 | + + + +---------+ | 2025-04-05 00:00 | height_metric | 167.64 | cm | + + + +---------+ | 2025-04-05 00:00 | height_standard | 66 | in | + + + +---------+ | 2025-04-05 00:00 | weight_metric | 93.199 | kg | + + + +---------+ | 2025-04-05 00:00 | weight_standard | 205.468 | lb | + + + +---------+ | 2025-04-06 00:00 | BP_diastolic | 48 | mmHg | + + + +---------+ | 2025-04-06 00:00 | BP_systolic | 117 | mmHg | + + + +---------+ | 2025-04-06 00:00 | heart_rate | 77 | /min | + + + +---------+ | 2025-04-06 00:00 | o2_saturation | 98 | % | + + + +---------+ | 2025-04-06 00:00 | respiration_rate | 14 | /min | + + + +---------+ | 2025-04-06 00:00 | | 98.9 | F | | | temperature_standar | | | | | d | | | + + + +---------+"
[~2025-06-08 12:01] MED LIST changes: +AMOX TR-K CLV1 EAC1 PO; +HYDROCODON-ACE1 EA10 PO
[2025-06-08] MEDS ORDERED: HYDROmorphone HCL 1 MG/ML SYR IV PRN (12:30)
[2025-06-08] MEDS ORDERED: SODIUM CHLORIDE 0.9% 1,000 ML IV ONE (12:30)
[2025-06-08 13:03] LABS: BASOPHILS 0.5 % (0.1-1.2); EOSINOPHILS 0.5 % (0.7-5.8); LYMPHOCYTES 10.8 % (19.3-51.7); MCH 30.5 PG (25.6-32.2); MCHC 34.7 g/dL (32.2-35.5); MCV 87.8 fL (79.4-94.8); MONOCYTES 2.5 % (4.7-12.5); NEUTROPHILS 85.4 % (34.0-71.1); RBC 4.17 M/uL (3.93-5.22)
[2025-06-08 13:16] LABS: ALT (SGPT) 18.0 U/L (14-59); AST (SGOT) 31.0 U/L (15-37); GLOMERULAR FILTRATION RATE,EST 113.0 mL/min (>60); PROTEIN, TOTAL 7.0 g/dL (6.4-8.2); UREA NITROGEN 8.0 mg/dL (7-18)
[2025-06-08] MEDS ORDERED: HYDROCODON-ACE1 EA11 PO (16:34)
[2025-06-08] MEDS ORDERED: AMOX TR-K CLV1 EAC1 PO (16:34)
[2025-06-08] MEDS ORDERED: ONDANSETRON ODT8 MG PO (16:36)
[2025-06-08] MEDS ORDERED: AMOXICILLIN/CLAVULANATE K 875 MG TAB PO ONE (16:45)
[2025-06-08] MEDS ORDERED: HYDROCODONE/ACETA 7.5/325 TAB PO ONE (16:45)
[2025-06-08 17:55] VITALS: BP 139/60
== END 2025-06-08 17:52 | disposition home or self-care (01) ==
LOC: ED 12:01
PROVIDERS: Emergency Medicine
DX: K52.9 Noninfective gastroenteritis and colitis, unspecified (principal); I10 Essential (primary) hypertension; Z88.2 Allergy status to sulfonamides; Z79.899 Other long term (current) drug therapy
CPT/HCPCS: 36415; 74177; 80053; 83690; 85025; 96361; 96374; 96375; 96376; 99284-25; A9270; J1171; J1790; J2405; J7030; Q9967